=== PATIENT | female | born 1975 | race Caucasian/White ===

== ENCOUNTER → 2018-01-12 | Outpatient (CLI) | payer BC | LOC: COL.RAD 12:50 | DX: E27.8 Other specified disorders of adrenal gland (principal); L29.9 Pruritus, unspecified; R53.1 Weakness | CPT/HCPCS: A9585 ==

== ENCOUNTER 2018-02-02 09:17 | Outpatient (CLI) | payer BC ==
[2018-02-02] VITALS (7 sets, daily range): BP systolic 116–136; BP diastolic 72–85; PULSE 55–71; TEMP 98.4
[~2018-02-02] VITALS: Ht 167.6 cm; Wt 102.7 kg
[~2018-02-02 09:17] MED LIST: ALDACTONE50 MG PO; CELEXA 20MG20 MG/TAB PO; GLUCOPHAGE1000 MG PO; PRILOSEC 20MG20 MG PO; RISPERDAL 0.5M0.5 MG PO; SINGULAIR 110 MG/TAB PO; SPRINTEC 35 MCG1 TAB PO; TENORMIN 2525 MG/TAB PO
[2018-02-02 12:09] LABS: GLUCOSE,CSF 53 mg/dL (40-70); TOTAL PROTEIN,CSF 25 mg/dL (15-45)
[2018-02-02 12:21] LABS: CSF APPEARANCE CLEAR; CSF COLOR COLORLESS; CSF RBC 19 /mm3 (0-0)
[2018-02-02 12:26] LABS: CSF MONONUCLEAR 100 % (70-100); CSF POLYMORPHONUCLEAR 0 % (0-6)
[2018-02-04 13:09] LABS: ALBUMIN CSF 10.2 mg/dL (<=27.0); CSF IGG/ALBUMIN 0.15 (<=0.21); CSF,IGG 1.5 mg/dL (<=8.1)
[2018-02-04 14:11] LABS: CSF-IGG INDEX 0.52 (<=0.85); IGG/ALBUMIN SERUM 0.29 (<=0.40)
== END 2018-02-02 14:21 | disposition home or self-care (01) ==
LOC: COL.RAD 09:17
PROVIDERS: Psychiatry & Neurology Neurology
DX: G37.9 Demyelinating disease of central nervous system, unspecified (principal); R90.82 White matter disease, unspecified; G93.89 Other specified disorders of brain